=== PATIENT | female | born 1950 | race African-American/Black ===

== ENCOUNTER → 2016-12-29 | Outpatient (CLI) | payer MEDICARE, BC ==
[~2016-12-29] MED LIST: ALLOPURINOL300 MG PO; AMLODIPINE BESY10 MG PO; ATORVASTATIN CA10 MG PO; B-121000 MC1 PO; COLCRYS0.6 MG PO; DOCUSATE SODIU100 MG PO; DOXYCYCLINE HY100 M1 PO; LASIX20 MG PO; LISINOPRIL-HCTZ1 T14 PO; LISINOPRIL20 MG PO; LORTAB 7.5-5001 TAB PO; LORTAB 7.51 TAB 7.5/; MELOXICAM15 MG PO; MULTI VITAMIN1 EACH PO; OXCARBAZEPINE150 MG PO; PHENERGAN25 M1 DOB; PHENERGAN25 MG PO; PREDNISONE PO; PREDNISONE10 MG/DOSE PO; VICODIN 5/1 TAB 5/50 PO; VICODIN 5/500 T1 TAB PO; VITAMIN B 12 PO; VITAMIN B-12500 MCG PO; VITAMIN D 3 PO; VITAMIN E400 UNI1 PO; VITAMIN E400 UNI5 PO; VOLTAREN75 MG PO
--- NOTE | ~2016-12-29 | BD1 ---
[facility] A Service of [facility] & [facility] RADIOLOGY TEXT RESULTS PATIENT: BOBBY WILKINS LOCATION: [facility] : 48 UNIT #: [id number] AGE: [address]: Ángel Briseno MD SEX: F ORDER DR: [id number] [facility] [address] [place], [place] [address] [id number] O MR#: [id number] Acc #: [id number] NAME: BOBBY WILKINS : 1950 SEX: F STUDY DATE/TIME: 12/29/2016 10:09 UNIT: [facility] ROOM: STUDY DESCRIPTION: BD Dexa Bone Dens 1+ Site Attending Physician: Ángel Briseno M.D. Ordering Physician: Ángel Briseno M.D. Primary Care Physician: Ángel Briseno M.D. MEDICAL IMAGING REPORT This report is preliminary unless electronic signature is present EXAM DXA scan 12/29/2016 HISTORY Status post menopause with no hormone replacement therapy. Osteopenia. Hysterectomy with removal of both ovaries. Smoking history for 20 years. FINDINGS Bone mineral density in the lumbar spine from L1-L4 was 1.461 g/cm2, which is 3.8 standard deviations above the mean when compared to the young adult reference population which is within the range of normal. This is 4.9 standard deviations above the mean when compared to the age-matched population. Bone mineral density in the left femoral neck was 1.245 g/cm2, which is 3.6 standard deviations above the mean when compared to the young adult reference population, which is within the range of normal. This is 3.4 standard deviations above the mean when compared to the age-matched population. IMPRESSION Bone mineral density in the lumbar spine and left hip within the range of normal. Dictated by... Pancho Diez M.D. THIS IS AN ELECTRONICALLY VERIFIED REPORT Pancho Diez M.D. at 12/31/2016 8:03 AM WOLFGANG/gentry TD: 12/29/2016 14:52 [facility] A Service of [facility] & [facility] RADIOLOGY TEXT RESULTS PATIENT: BOBBY WILKINS LOCATION: [facility] : 48 UNIT #: [id number] AGE: [address]: Ángel Briseno MD SEX: F ORDER DR: JOB #: [id number] MEDICAL IMAGING REPORT Page 1 of 1 COPY
== END | disposition home or self-care (01) ==
LOC: CWCC 09:42
DX: Z78.0 Asymptomatic menopausal state (principal)
CPT/HCPCS: 77080